=== PATIENT | male | born 2000 | race Caucasian/White ===

== ENCOUNTER 2019-01-07 07:38 | Inpatient (IN) | payer OTHER ==
[2019-01-07] VITALS (42 sets, daily range): BP systolic 52–194; BP diastolic 35–130
[~2019-01-07] VITALS: Ht 182.8 cm; Wt 88.5 kg
--- NOTE | ~2019-01-07 | CON ---
[place], [place] REPORT OF CONSULTATION NAME: SANG LAWRENCE UNIT #: [id number] ROOM: [facility]- DOCTOR: ABRAHAM LEIGH BIRTHDATE: [birth year] DOS: 01/07/2019 REQUESTED BY: Hospitalist service. REASON FOR CONSULTATION: Overdose with acute hypoxemic respiratory failure. HISTORY OF PRESENT ILLNESS: This is a 18-year-old male who presented to the ER status post overdose. Due to the patient's current status, HPI is limited at this time and the patient cannot provide further history. History is obtained from the chart. During his ER evaluation, his pulse ox was found to be in the 50s and he had left-sided pulmonary edema. Results from laboratory workup are pending at this time. Heart rate was found to be 155. The patient intubated at the bedside for airway protection and pulmonary edema. PAST MEDICAL HISTORY: Unknown at this time. PAST SURGICAL HISTORY: Unknown at this time. PAST SOCIAL HISTORY: Unknown at this time. FAMILY HISTORY: Unknown at this time. CURRENT MEDICATIONS: Unknown at this time. ALLERGIES: No known drug allergies. PHYSICAL EXAMINATION: GENERAL: Sedated and intubated, 18-year-old male. VITAL SIGNS: Heart rate noted to be in the 150s, sinus tachycardia, respirations of 30, but now well controlled on the ventilator. Blood pressure 168/98. HEENT: Normocephalic, atraumatic. NECK: No JVD, no edema. ET tube in midline position. CARDIOVASCULAR: Tachycardia, no arrhythmia. No murmurs, rubs or gallops. PULMONARY: Diminished on the left side. No wheezes, rales or rhonchi. ABDOMEN: No distention or deformity. EXTREMITIES: No gross deformities, cellulitis or edema. GENITOURINARY: Arguello placed at this time. NEUROLOGIC: Unable to be assessed at this time due to conscious sedation for ventilator placement. ASSESSMENT: 1. Acute respiratory failure with hypoxemia. 2. Overdose. 3. Metabolic encephalopathy. PLAN: Admit the patient to the ICU and continue current ventilator management at this time. The toxicology screen was negative for opiates, methadone, barbiturates and benzos, but was positive for cocaine and cannabinoids. Ethyl alcohol is pending at this time. Blood gas shows severe respiratory acidosis. [place], [place] REPORT OF CONSULTATION NAME: SANG LAWRENCE UNIT #: [id number] ROOM: [facility] DOCTOR: ABRAHAM LEIGH BIRTHDATE: [birth year] ABGs to be repeated once the patient comes up to the ICU and we will reassess at that time; 40 of Lasix was also given in the ER for noncardiogenic pulmonary edema. We will assess with repeat chest x-ray in the morning. ABRAHAM LEIGH, YAHIR FRANK MD CM:CONSTR:REPORT OF CONSULTATION 0914 01/07/19 4445 interface
--- NOTE | ~2019-01-07 | EKG ---
[place], [place] ELECTROCARDIOGRAM REPORT NAME: SANG LAWRENCE UNIT #: [id number] ROOM: [facility] DOCTOR: YISEL DRAFT REPORT BIRTHDATE: [birth year] [facility] Test Date: 2019-01-07 Test Time: 14:27:46 Pat Name: SANG LAWRENCE Department: Room: [place] [address] Gender: M Title I Instructional Assistant: Jewell Candelaria : 2000 Requested By: LATANYA DOMINGO Order Number: [id number] Reading MD: Rakan Mendoza MD Measurements Intervals [place] Rate: 134 P: 79 MI: 107 QRS: 85 QRSD: 84 T: 71 QT: 312 QTc: 466 Interpretive Statements Sinus tachycardia Nonspecific T abnrm, anterolateral leads Electronically Signed On 01-08-2019 5:06:34 PDT by Rakan Mendoza MD CM:EKGRPT:ELECTROCARDIOGRAM REPORT 1427 [id number] LATANYA MORILLO DRAFT REPORT LATANYA DOMINGO
--- NOTE | ~2019-01-07 | EKG ---
[place], [place] ELECTROCARDIOGRAM REPORT NAME: SANG LAWRENCE UNIT #: [id number] ROOM: [facility] DOCTOR: YISEL DRAFT REPORT BIRTHDATE: [birth year] [facility] Test Date: 2019-01-07 Test Time: 08:21:22 Pat Name: SANG LAWRENCE Department: Room: [facility] Gender: M Long Distance Billing Operator: YOGESH RICHARDS : 2000 Requested By: SUE WALDEN Order Number: [id number] Reading MD: Rakan Mendoza MD Measurements Intervals [place] Rate: 147 P: 72 OR: 135 QRS: 79 QRSD: 96 T: 10 QT: 290 QTc: 454 Interpretive Statements Sinus tachycardia LAE, consider biatrial enlargement Borderline repolarization abnormality, probably rate related No previous ECG available for comparison Electronically Signed On 01-07-2019 12:58:18 PDT by Rakan Mendoza MD CM:EKGRPT:ELECTROCARDIOGRAM REPORT 0821 1258 SUE MADDEN DRAFT REPORT SUE WALDEN DO
--- NOTE | ~2019-01-07 | CON ---
[place], [place] REPORT OF CONSULTATION NAME: SANG LAWRENCE UNIT #: [id number] ROOM: [facility] DOCTOR: MONIKA TOVAR MD,YAHIR BIRTHDATE: [birth year] DOS: 01/07/2019 PULMONARY CRITICAL CARE EVALUATION AND MANAGEMENT CONSULTATION REQUESTED BY: Gilbert Gonzalez D.O. REASON FOR CONSULTATION: Altered mental status, severe hypoxemia with respiratory failure. HISTORY OF PRESENT ILLNESS: This is a 18-year-old white male patient ____, brought to the Emergency Room as the EMS was called. The patient was found unresponsive in the home settings. The patient has been noted with decreased respiration. The patient was given intranasal Narcan 2 mg. He has not been noted responsive with that. The patient was given intravenous Narcan 2 mg IV push, resulted in mild increase in the respiratory rate, but noted to have labored breathing. The patient noted pulse ox saturation described in the 55% at the time of assessment is seen. He was also noted to have sinus tachycardia. The patient was brought to the Emergency Room, where he is being assessed by Dr. Gilbert Gonzalez. The patient was intubated and started on mechanical ventilation. He was seen in the Emergency Room for further assessment at that time as well. The patient was noted with thrashing somewhat on the bed. He has been given succinylcholine for the intubation few minutes ago. The patient is currently noted with pulse oxygen saturation, which was noted in 55%-60% range on 100% oxygen supplementation with Ambu bag. He has been noted copious amount of secretions, which has been suctioned out intermittently through the endotracheal tube, appeared to be hemorrhagic secretions, appeared to be cleared, but there were no findings. Apparently, secretions suctioned out. There were no food particles, which has been suctioned out from endotracheal tube. The patient has been currently seen in the ER. The chest x-ray was completed in my personal presence, which was reviewed, noted endotracheal tube in place with unilateral infiltration noted in the left lung. Right lung is clear. Endotracheal tube was appropriately placed. The patient has not been noted to have any evidence of hypotension, required any vasopressor therapy at the time of the assessment. PAST MEDICAL HISTORY: Noted with history of illicit drug dependence, details were unknown. PAST SURGICAL HISTORY: Reported none. HOME MEDICATIONS: Regular use, which the patient reported. The patient was given intravenous fluids. SOCIAL HISTORY: The patient's history of tobacco was unknown. FAMILY HISTORY: Has been noted noncontributory. REVIEW OF SYSTEMS: Could not be completed. All the history contained in the document was review of the nurses' note as well as notes by the other physicians. [place], [place] REPORT OF CONSULTATION NAME: SANG LAWRENCE UNIT #: [id number] ROOM: [facility] DOCTOR: MONIKA TOVAR MD,YAHIR BIRTHDATE: [birth year] PHYSICAL EXAMINATION: GENERAL: This is a 18-year-old male patient, who has been noted restless, was given rocuronium later on as the patient was paralyzed. He was started on mechanical ventilation as well. VITAL SIGNS: His height was recorded on admission by the nursing staff with height of 6 feet, weight of 195 pounds. Vital signs, which have recorded shows the temperature noted normal on admission, later on 99.5 degree Fahrenheit; respiratory rate was noted as 30-33, which was set on mechanical ventilator; heart rate sinus tachycardia ranging between 167 and 142 beats per minute. Pulse oxygen saturation initially is 55%, later on 73%. Now, the patient is started on mechanical ventilation with lung volume protection strategy for ARDS. Pulse oxygen saturation improved to 100% later on after several minutes at the bedside assessment. HEENT: On examination, pupils are dilated. Head was atraumatic. Eyes nonicterus. NECK: Supple. The patient is intubated. CARDIOVASCULAR SYSTEM: S1, S2 audible. LUNGS: Noted with decreased breath sounds. Occasional crackles in the left lung. ABDOMEN: Soft, flat, and nontender. Hypoactive bowel sounds. CENTRAL NERVOUS SYSTEM: At this time, the patient was paralyzed, he was noted thrashing, moving upper and lower extremities. Eyes, not open. VISIBLE SKIN: No lesions or rashes. MUSCULOSKELETAL: No gross deformities. LABORATORY DATA: The CMP that was done on admission, BUN of 40, creatinine of 2.29, glucose of 62, and sodium of 143. AST is 171 and ALT is 110. BNP is 131. Troponin is 2.78. Arterial blood gas that was done; pH of 7.00, pCO2 of 80, and pO2 of 84 on 100% oxygen, tidal volume of 400 mL, respiratory rate of 30, 15 minutes prior to the patient started on mechanical ventilation. The PT and PTT is normal. INR is 1.2. The salicylate level is noted less than 1.7. Urine drug toxicology was noted positive as a cocaine and THC. Lactic acid was 9.8. IMAGING DATA: Chest x-ray, already stated in my earlier part of the consultation report. IMPRESSION: 1. The patient has been noted with acute drug overdose, unresponsiveness, acute hypoxemic respiratory failure, severe metabolic acidosis secondary to lactic acidosis, most likely unresponsive, possibly is hypoperfusion injury. 2. The patient with unilateral pulmonary edema, pulmonary hemorrhage related to the cocaine intoxication. 3. Elevation in troponin, most likely related to cocaine intoxication, rule out acute coronary artery syndrome as well. 4. Past history of illicit drug use also noted. 5. The patient with acute kidney injury was also noted. Elevation of creatinine on admission. Whether the patient has chronic kidney injury or acute at this time is unable to determine, possibility of chronic kidney cannot be completely excluded. [place], [place] REPORT OF CONSULTATION NAME: SANG LAWRENCE UNIT #: [id number] ROOM: [facility] DOCTOR: MONIKA TOVAR MD,[facility] BIRTHDATE: [birth year] PLAN OF MANAGEMENT: At this time, the patient has been admitted to the Intensive Care Unit. Follow up lactic acid per protocol. IV fluids to be given, 1 dose of IV Lasix was administered to help improve the pulmonary edema, which appeared to be noncardiogenic in origin. The patient has been already consulted per Cardiology Service, follow the recommendation. DVT prophylaxis. Ventilator bundle management. Repeat arterial blood gases has been ordered. Based on that, additional adjustment in the mechanical ventilator will be done, started on PEEP of 16 cm of water, which was adequately oxygenating. Further changes will be made based on the new arterial blood gases assessment. For any hypotension, vasopressors could be added to the treatment as a Levophed. Arterial line was also suggested to be placed as the patient will require frequent arterial blood gases. The patient already ordered additional testing by the ER physician, follow those, and make further changes in assessment. Total time in pulmonary critical care evaluation and management excluding and available procedure was 45 minutes. YAHIR FRANK MD CM:CONSTR:REPORT OF CONSULTATION 1714 01/08/19 1235 interface
--- NOTE | ~2019-01-07 | CON ---
[place], [place] REPORT OF CONSULTATION NAME: SANG LAWRENCE UNIT #: [id number] ROOM: [facility] DOCTOR: DHRUV MONROY BIRTHDATE: [birth year] DOS: 01/07/2019 CARDIOLOGY CONSULTATION REASON FOR CONSULTATION: Elevated troponin. HISTORY OF PRESENT ILLNESS: The patient is a 18-year-old gentleman with no medical history. He was found by his grandmother at 7:00 this morning unresponsive in bed, last seen awake last night at 2:00 a.m. He was found to have labored breathing and 911 was called. Paramedics responded, administered Narcan, the patient was brought to the Emergency Department where he was intubated and apparently found to be very hypoxic with labored breathing. He was admitted to the intensive care unit and has not been responsive. Urine toxicology showed THC and cocaine. History is obtained from discussion with the ICU team and his parents were at the bedside. The patient has no medical history and takes no home medications. Apparently, he has had some known history of using marijuana, but the details of other substance abuse is not known. Initial troponin was 2.78 and repeat one up to 4.18. Telemetry is showing sinus tachycardia. EKG also showed sinus tachycardia with no acute ST or T-wave abnormalities. REVIEW OF SYSTEMS: Unable to obtain due to the patient's condition. PAST MEDICAL HISTORY: None. PAST SURGICAL HISTORY: None. SOCIAL HISTORY: The patient smokes. He uses a vaping device. Occasional marijuana abuse. Does not smoke cigarettes. Details of alcohol use is not known. FAMILY HISTORY: No known history of premature coronary artery disease. His parents are alive and in apparent good health. HOME MEDICATIONS: None. ALLERGIES: No known drug allergies. PHYSICAL EXAMINATION: VITAL SIGNS: Temperature 99.5, pulse 120-130 and regular, respirations 36 on the ventilator with 80% FiO2 with assist control. Blood pressure is 102/50, most recently 88/53. GENERAL APPEARANCE: He is a young male who is unresponsive, intubated in the ICU. HEENT: Pupils are pinpoint, about 1-2 mm, not quite reactive. ENT: Endotracheal tube is noted. NECK: Jugular venous pressure is normal. Neck is supple. RESPIRATION: Lungs are coarse. CARDIOVASCULAR: Tachycardic, irregular. No murmurs. [place], [place] REPORT OF CONSULTATION NAME: SANG LAWRENCE UNIT #: [id number] ROOM: [facility] DOCTOR: DHRUV MONROY BIRTHDATE: [birth year] ABDOMEN: Positive bowel sounds. Soft, nontender. EXTREMITIES: Warm, well perfused. Free of edema. NEUROLOGIC: Unable to assess given the patient's mental status. SKIN: No lesions or rashes. LABORATORY DATA: Hemoglobin 19.2, platelets 235. Initial ABG showed a pH of 7.005, pCO2 of 80. Repeat blood gas, pH 7.12 with pCO2 of 70. Potassium 3.9, serum bicarbonate 21, BUN 14, creatinine 2.29. Lactic acid 2.9, AST 171, ALT 110. Initial troponin 2.78, up to 4.18. ProBNP 131. Urine toxicology showing positive for cocaine and cannabinoids and negative for other tested substances. EKG showed sinus tachycardia with a rate of 130 beats per minute, with no ST or T-wave abnormalities. Chest x-ray showed left upper and lower lobe pneumonia. IMPRESSION: 1. Non-ST elevation myocardial infarction, in the setting of drug overdose and positive cocaine. Possible cocaine-induced vasospasm versus cocaine-induced thrombo-occlusive myocardial infarction. 2. Drug overdose, positive for opioids and cannabinoids, question other substances. 3. Acute hypoxic/hypercapnic respiratory failure. 4. Lactic acidosis. 5. Metabolic encephalopathy. 6. Acute renal failure. 7. Polycythemia. 8. Shock RECOMMENDATIONS: 1. Obtain 2D echocardiogram to assess for wall motion abnormality. 2. If no evidence of head bleed on CT scan of head, would initiate intravenous heparin for anticoagulation. 3. Given his critical illness and other acute issues, including the renal failure, would not recommend any invasive angiography at this time. Further decision on this can be made once he is stabilized and neurologic function has been adequately assessed. 4. Continue to trend troponins until we see a peak. 5. Supportive care per ICU team. 6. Consider transfer to a higher level of care facility. 35 minutes of critical care time provided given critical illness and high likelihood of life threatening deterioration. Thank you for the consultation. [place], [place] REPORT OF CONSULTATION NAME: SANG LAWRENCE UNIT #: [id number] ROOM: [facility] DOCTOR: DHRUV MONROY BIRTHDATE: [birth year] Dr. DHRUV MONROY MD CM:CONSTR:REPORT OF CONSULTATION 1134 1645 TANIKA CARRILLO MIS.R
--- NOTE | ~2019-01-07 | EKG ---
[place], [place] ELECTROCARDIOGRAM REPORT NAME: SANG LAWRENCE UNIT #: [id number] ROOM: [facility] DOCTOR: YISEL DRAFT REPORT BIRTHDATE: [birth year] [facility] Test Date: 2019-01-07 Test Time: 11:08:07 Pat Name: SANG LAWRENCE Department: Room: [place] [address] Gender: M Critical Care Physician Assistant: Trisha Barclay : 2000 Requested By: LATANYA DOMINGO Order Number: [id number] Reading MD: Rakan Mendoza MD Measurements Intervals [place] Rate: 130 P: 76 WI: 110 QRS: 86 QRSD: 84 T: 71 QT: 294 QTc: 433 Interpretive Statements Sinus tachycardia Consider right atrial enlargement Electronically Signed On 01-07-2019 13:05:16 PDT by Rakan Mendoza MD CM:EKGRPT:ELECTROCARDIOGRAM REPORT 1108 1305 LATANYA MORILLO DRAFT REPORT LATANYA DOMINGO
[~2019-01-07 07:38] MED LIST: CLARITIN10 MG PO; MEDROL DOSEPAK4 MG PO
--- NOTE | 2019-01-07 07:50 | NUR ---
THE PATIENT WAS INTUBATED PER DR WALDEN. LARGE AMOUNT OF RED SECRETIONS SUCTIONED FROM THE AIRWAY. PROPOFOL STARTED AT 0808. DR FRANK IN DEPARTMENT FOR CONSULT ON PATIENT. 0810 FAMILY IS AWARE [facility] CANNOT FLY AND DR FRANK FEELS THE PATIENT IS STABLE ENOUGH TO SEND TO ICU HERE AT [facility]. FAMILY IS OK WITH THIS. JIMMY JULIO RN.
--- NOTE | 2019-01-07 08:00 | NUR ---
PULSE OX AT 82% WITH BAGGING BVIA ET TUBE. LEVELMAN SINUS TACHWITH A RATE OF 154.JIMMY JULIO RN.
--- NOTE | 2019-01-07 08:20 | NUR ---
CARDIAC MONITORING SINUS TACH AT 158.JIMMY JULIO RN.
[2019-01-07 08:24] LABS: HEMATOCRIT 59.4 % (42.0-52.0); HEMOGLOBIN 19.2 g/dl (14.0-18.0); MEAN CORPUSCULAR HGB 32.3 pg (27.0-31.0); MEAN CORPUSCULAR HGB CONC 32.3 g/dl (33.0-37.0); MEAN PLATELET VOLUME 9.5 fl (9.6-12.3); NUCLEATED RED BLOOD CELL 0.1 10*3/uL (0.0-0.0); NUCLEATED RED BLOOD CELL 0.6 % (0.0-0.0); PLATELET COUNT AUTOMATED 235 10*3/uL (130-400); RED BLOOD COUNT 5.94 10*6/uL (4.50-5.90); RED CELL DISTRI WIDTH 12.3 % (0-14.5); WHITE BLOOD COUNT 9.3 10*3/uL (4.8-10.8)
--- NOTE | 2019-01-07 08:25 | NUR ---
ESTEFANIA FRANK STATES THE PATIENT IS STABLE FOR ADM TO ICE. JIMMY JULIO RN.
[2019-01-07 08:45] LABS: ABG HCO3 19.1 mmol/l (22-26); ABG O2 SATURATION 93.5 % (95-97); ARTERIAL BLOOD GAS PO2 80.3 mmHg (80-90)
[2019-01-07 08:46] LABS: ATYPICAL LYMPHS 1 % (0-0); BASOPHILS 1 % (0-1); PLATELET SUFFICIENCY NORMAL (NORMAL); TOTAL CELLS COUNTED 100 #CELLS
[2019-01-07 08:49] LABS: BILIRUBIN NEGATIVE (NEGATIVE); BLOOD 2+ (NEGATIVE); CLARITY SL CLOUDY (CLEAR); COLOR YELLOW (YELLOW); GLUCOSE NEGATIVE (NEGATIVE); KETONE NEGATIVE (NEGATIVE); LEUKO ESTERASE NEGATIVE (NEGATIVE); NITRITE NEGATIVE (NEGATIVE); SPECIFIC GRAVITY >= 1.030 (1.005-1.030); UROBILINOGEN 0.2 E.U./dl (0.2-1.0)
[2019-01-07 08:54] LABS: URINE AMPHETAMINES < 1000 (1000ng/ml); URINE BARBITURATES < 200 (200ng/ml); URINE BENZODIAZEPINES < 200 (200ng/ml); URINE CANNABINOIDS (THC) > 50 (50ng/ml); URINE COCAINE > 300 (300ng/ml); URINE METHADONE < 300 (300ng/ml); URINE OPIATES < 300 (300ng/ml)
[2019-01-07 09:02] LABS: ARTERIAL BLOOD GAS PH 7.005 (7.35-7.45)
[2019-01-07 09:03] LABS: ABG BASE EXCESS -16.5 mmol/L (-2.0-2.0)
[2019-01-07 09:03] LABS: URINE PHENCYCLIDINE < 25 (25ng/ml)
--- NOTE | 2019-01-07 09:03 | NUR ---
DR WALDEN NOTIFIED OF CRITICAL LAB RESULTS.
[2019-01-07 09:08] LABS: ACT PARTIAL THROMBO TIME 26.7 SECONDS (20.0-32.1); INTERNATIONAL NORM RATIO 1.2 (2.0-3.5)
[2019-01-07 09:11] LABS: ALBUMIN 3.3 gm/dl (3.1-4.5); ALKALINE PHOSPHATASE 149 U/L (45-117); BUN 14 mg/dl (7-24); CHLORIDE 110 mmol/L (98-107); CREATININE 2.29 mg/dL (0.70-1.30); LIPASE 184 U/L (73-393); POTASSIUM 3.9 mmol/L (3.5-5.1); SGOT/AST 171 IU/L (3-35); SGPT/ALT 110 U/L (12-78); SODIUM 143 mmol/L (136-145)
[2019-01-07 09:12] LABS: TOTAL PROTEIN 6.4 gm/dL (6.4-8.2)
[2019-01-07 09:14] LABS: ACETAMINOPHEN (TYLENOL) < 5.0 ug/ml (10-30)
[2019-01-07 09:15] LABS: ETHYL ALCOHOL < 3.0 mg/dl (<3)
--- NOTE | 2019-01-07 09:15 | NUR ---
A 18, admitted to ICCU, under the services of KEI Mcclure DO with a diagnosis of DRUG OVERDOSE. Chief complaint is FOUND UNRESPONSIVE AT HOME. Patient arrived via stretcher from ER. Monitor applied. Initial assessment completed. Vital signs taken and recorded. KEI MCCLURE DO notified of admission to the unit. Orders received. See assessment for past medical history, medications and allergies. Patient and/or family oriented to unit. [facility] ICCU visitation policy reviewed. Clothing/patient valuable form completed. JIMMIE PERRY
[2019-01-07 09:59] LABS: ABG HCO3 21.5 mmol/l (22-26); ABG O2 SATURATION 96.1 % (95-97); ARTERIAL BLOOD GAS PCO2 69.8 mmHg (35-45)
[2019-01-07 10:01] LABS: ABG BASE EXCESS -10.6 mmol/L (-2.0-2.0); ARTERIAL BLOOD GAS PH 7.12 (7.35-7.45)
--- NOTE | 2019-01-07 10:54 | NUR ---
DR DOMINGO MADE AWARE OF PT'S RECOMMENDATIONS FOR AN ART LINE AND ALSO MADE HIM AWARE OF PT'S LACTIC ACID OF 2.9 AND TROPONIN LEVEL OF 4.18.
--- NOTE | 2019-01-07 11:22 | NUR ---
DR MONROY IN TO SEE PT AND SPOKE WITH PARENTS.
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
--- NOTE | 2019-01-07 11:38 | NUR ---
DR DOMINGO MADE AWARE OF PT'S BLOOD PRESSURE OF 80'S SYSTOLIC. NEW ORDER TO START LEVOPHED GTT RECEIVED.
--- NOTE | 2019-01-07 11:39 | NUR ---
LEVOPHED GTT STARTED AT 4MCG/MIN.
--- NOTE | 2019-01-07 11:45 | NUR ---
DIPRIVAN GTT STOPPED AT THIS TIME DUE TO HYPOTENSION AND PT NOT RESPONDING TO STIMULI AT THIS TIME.
--- NOTE | 2019-01-07 12:03 | NUR ---
DR GARCIAOREKENYA. ONCE DIPRIVAN GTT STOPPED PT DID OPEN EYES AND FOLLOWING WITH HIS EYES. FIGHTING AGAINST RESTRINTS. BLOOD GLUCOSE CHECKED AND FOUND TO BE 32. AMP OF D50 GIVEN AND DR DOMINGO MADE AWARE. MAINTAINANCE FLUIDS CHANGED TO D5NS.
--- NOTE | 2019-01-07 13:21 | NUR ---
BP 98/55 WITH MAP OF 71 AFTER LEVOPHED GTT INCREASED TO 10MCG/MIN.
--- NOTE | 2019-01-07 14:15 | NUR ---
ART LINE PLACED IN PT'S RIGHT FEMEROL ARTERY BY PHYSICIAN.
--- NOTE | 2019-01-07 14:16 | NUR ---
AFTER D50 AND IVF'S SWITCHED TO D5NS PT'S GLUCOSE NOW 90 PER BEDSIDE MONITOR.
[2019-01-07 14:24] LABS: ABG HCO3 16.1 mmol/l (22-26); ABG O2 SATURATION 99.7 % (95-97); ARTERIAL BLOOD GAS PH 7.247 (7.35-7.45)
[2019-01-07 14:28] LABS: ABG BASE EXCESS -10.1 mmol/L (-2.0-2.0)
--- NOTE | 2019-01-07 15:11 | NUR ---
DR FRANK MADE AWARE OF NEW CONSULT ORDER. FIO2 TITRATED DOWN TO 50%.
--- NOTE | 2019-01-07 15:18 | NUR ---
DR DOMINGO NOTIFIED OF PT'S LACTIC ACID OF 4.2 AND TROPONIN LEVEL OF 5.84.
--- NOTE | 2019-01-07 16:24 | NUR ---
DIPRIVAN GTT TURNED OFF AT THIS TIME WITH DR DOMINGO IN THE ROOM TO CHECK NEURO STATUS. PT PULLS AWAY FROM STERNAL RUB BUT DOES NOT OPEN HIS EYES. PUPILS REMAIN PINPOINT. WILL CONTINUE TO MONITOR WITH DIPRIVAN OFF AT THIS TIME. FATHER AND BROTHER IN ROOM WITH PT.
--- NOTE | 2019-01-07 16:39 | NUR ---
AFTER DIPRIVAN OFF FOR APPROX 10MIN PT BECOMING AGITATED PULLING AT RESTRAINTS REACHING FOR TUBES AND LINES. DOES NOT OPEN EYES WITH VERBAL ENCOURAGEMENT BY FAMILY. DR DOMINGO IN ROOM AT THIS TIME AND DIPRIVAN GTT RESTARTED.
--- NOTE | 2019-01-07 19:05 | NUR ---
NURSE TO NURSE REPORT GIVEN TO LI AT [facility]. PT GOING TO ICU 4423 BED 6 UNDER THE CAR OF DR Brandan QUEZADA. PT'S MOTHER AT BEDSIDE AND AWARE OF TRANSFER.
[2019-01-07 19:40] LABS: CREATININE 2.77 mg/dL (0.70-1.30); POTASSIUM 4.7 mmol/L (3.5-5.1)
[2019-01-07 19:45] LABS: TROPONIN I 11.8 ng/ml (<0.045)
--- NOTE | 2019-01-07 21:30 | NUR ---
PATIENT LEFT FLOOR VIA [facility]. TRANSFER TO [facility]. ACCEPTING DR. BARRIOS.
== END 2019-01-07 21:30 | disposition short-term general hospital (02) | DRG 917 ==
LOC: ED 07:38 → EDHOLD 08:28 → ICCU 08:28
PROVIDERS: Emergency Medicine; Internal Medicine Critical Care Medicine; Student in an Organized Health Care Education/Training Program; ADMIT Internal Medicine
PROC: 5A1935Z Respiratory Ventilation, Less than 24 Consecutive Hours (ICD-10-PCS; principal; 2019-01-07)
PROC: 04HY32Z Insertion of Monitoring Device into Lower Artery, Percutaneous Approach (ICD-10-PCS; principal; 2019-01-07)
PROC: B548ZZA Ultrasonography of Superior Vena Cava, Guidance (ICD-10-PCS; principal; 2019-01-07)
PROC: 02HV33Z Insertion of Infusion Device into Superior Vena Cava, Percutaneous Approach (ICD-10-PCS; principal; 2019-01-07)
PROC: 0BH17EZ Insertion of Endotracheal Airway into Trachea, Via Natural or Artificial Opening (ICD-10-PCS; principal; 2019-01-07)
DX: T50.991A Poisoning by other drugs, medicaments and biological substances, accidental (unintentional), initial encounter (principal); J96.01 Acute respiratory failure with hypoxia; G93.41 Metabolic encephalopathy; I21.4 Non-ST elevation (NSTEMI) myocardial infarction; N17.0 Acute kidney failure with tubular necrosis; J96.02 Acute respiratory failure with hypercapnia; E87.2 Acidosis; I95.9 Hypotension, unspecified; R74.0 Nonspecific elevation of levels of transaminase and lactic acid dehydrogenase [LDH]; R50.9 Fever, unspecified; R00.0 Tachycardia, unspecified; D75.89 Other specified diseases of blood and blood-forming organs; F14.129 Cocaine abuse with intoxication, unspecified; D75.1 Secondary polycythemia; Y92.89 Other specified places as the place of occurrence of the external cause

== ENCOUNTER 2024-06-17 14:52 | Emergency (ER) | payer OTHER, BC ==
[~2024-06-17] VITALS: Ht 185.4 cm; Wt 70.3 kg
== END 2024-06-17 15:39 | disposition left against medical advice (07) ==
LOC: ED 14:52
DX: M54.50 Low back pain, unspecified (principal); Z53.29 Procedure and treatment not carried out because of patient's decision for other reasons; V43.52XA Car driver injured in collision with other type car in traffic accident, initial encounter; Y93.9 Activity, unspecified; Y92.410 Unspecified street and highway as the place of occurrence of the external cause; Y99.8 Other external cause status